=== PATIENT | male | born 1995 | race Caucasian/White ===

== ENCOUNTER 2021-11-13 22:32 | Emergency (ER) | payer OTHER ==
[2021-11-13 23:12] VITALS: BP 154/86; PULSE 78
== END 2021-11-13 23:49 | disposition home or self-care (01) ==
LOC: VM.ED 22:32
DX: F32.A Depression, unspecified (principal); F43.0 Acute stress reaction
CPT/HCPCS: 99284

== ENCOUNTER 2023-10-02 13:32 | Emergency (ER) | payer OTHER ==
[2023-10-02] MEDS ORDERED: Ondansetron 4 MG/2 ML SDV ONE (13:35)
[2023-10-02] MEDS ORDERED: fentaNYL 100 MCG/2 ML SDV ONE (13:35)
[2023-10-02] MEDS ORDERED: Sodium Chloride 0.9% 1,000 ML IV ONE (13:39)
[2023-10-02 13:46] LABS: BASOPHILS PERCENT AUTO 0.3 % (0.2-1.2); EOSINOPHILS ABSOLUTE AUTO 0.1 x10^3/uL (0.0-0.5); EOSINOPHILS PERCENT AUTO 1.3 % (0.0-4.0); HEMATOCRIT 46.4 % (40.0-52.0); HEMOGLOBIN 17.1 g/dL (14.0-18.0); IMMATURE GRAN ABSOLUTE AUTO 0.02 x10^3/uL (0.00-0.07); LYMPHOCYTES ABSOLUTE AUTO 5.1 x10^3/uL (1.0-4.8); MEAN CORPUSCULAR HEMOGLOBIN 31.4 pg (26.0-32.0); MEAN CORPUSCULAR HGB CONC 36.9 g/dL (32.0-36.0); MEAN CORPUSCULAR VOLUME 85.3 fL (78.0-93.0); MONOCYTES ABSOLUTE AUTO 0.8 x10^3/uL (0.0-0.8); MONOCYTES PERCENT AUTO 8.3 % (2.0-11.0); NEUTROPHILS ABSOLUTE AUTO 3.6 x10^3/uL (1.8-7.7); NEUTROPHILS PERCENT AUTO 37.6 % (50.0-80.0); PLATELET COUNT,PLT 252 x10^3/uL (130-400); RED BLOOD CELL COUNT 5.44 x10^6/uL (4.5-6.0); WHITE BLOOD CELL COUNT,WBC 9.7 x10^3/uL (4.0-10.0)
[2023-10-02] MEDS ORDERED: Diphtheria,Pertussis(Acell),Tetanus Vaccine 0.5 ML Syringe ONE (13:48)
[2023-10-02 13:50] LABS: LYMPHOCYTES PERCENT AUTO 52.3 % (25.0-50.0)
[2023-10-02 13:51] LABS: ANION GAP 18.3 mmol/L (5-15); BLOOD UREA NITROGEN,BUN 19 mg/dL (7-18); CALCIUM 9.1 mg/dL (8.5-10.1); CARBON DIOXIDE,CO2 23 mmol/L (21-32); CHLORIDE,CL 102 mmol/L (98-107); CREATININE 1.7 mg/dL (0.70-1.30); ESTIMATED GFR 57 mL/min (>=60); GLUCOSE RANDOM 98 mg/dL (70-99); POTASSIUM,K 3.3 mmol/L (3.5-5.1); SODIUM,NA 140 mmol/L (136-145)
[2023-10-02 13:54] LABS: PROTHROMBIN TIME 10.4 SEC (8.9-11.5); PTT,PARTIAL THROMBOPLSTIN TIME 27.5 SEC (21.9-33.8)
[2023-10-02] MEDS ORDERED: Morphine 10 MG/ML SDV ONE (13:58)
[2023-10-02] MEDS ORDERED: fentaNYL 50 MCG/ML SDV ONE (13:58)
[2023-10-02] MEDS ORDERED: Lactated Ringers 1,000 ML IV ONE (14:15)
== END 2023-10-02 15:03 | disposition short-term general hospital (02) ==
LOC: VM.ED 13:32
DX: T20.27XA Burn of second degree of neck, initial encounter (principal); T21.21XA Burn of second degree of chest wall, initial encounter; T21.22XA Burn of second degree of abdominal wall, initial encounter; T22.211A Burn of second degree of right forearm, initial encounter; T22.212A Burn of second degree of left forearm, initial encounter; T30.0 Burn of unspecified body region, unspecified degree; T31 Burns classified according to extent of body surface involved; W40.9XXA Explosion of unspecified explosive materials, initial encounter; Y92.89 Other specified places as the place of occurrence of the external cause; Y99.0 Civilian activity done for income or pay
CPT/HCPCS: 51702; 71045; 80048; 85025; 85610; 85730; 90471; 90715; 96361; 96374; 96375; 99285-25; J2270; J2405; J3010; J7030; J7120